=== PATIENT | female | born 1980 ===

== ENCOUNTER 2021-02-01 14:19 | Emergency (ER) | payer OTHER ==
[~2021-02-01] VITALS: Ht 170.2 cm; Wt 61.2 kg
[2021-02-01 15:00] VITALS: BP 95/41
[2021-02-01] MEDS ORDERED: Tetanus/Diptheria/Pertussis IM ONE (15:15)
--- NOTE | 2021-02-01 15:53 | Emergency Room Report ---
History of Present Illness General Chief Complaint: Laceration Source: Patient Present Illness HPI 40-year-old female with no signal past medical history here complaining of pain and laceration on knuckles index and middle finger right hand. Patient reports that 1 hour prior to arrival she had a glass door and broke the glass. Is able to talk full range of motion of the hand. Denies any sensory deficit. Is neurovascularly intact. Has full strength. Has not taken medication for symptom relief. Minimal bleeding noted. Denies taking any blood thinners. Denies all other injuries. Rates the pain 5 out of 10 without radiation. Denies tingling or numbness. Denies . Allergies: Coded Allergies: DIPHENHYDRAMINE (Verified Allergy, Severe, 02/01/21) FISH CONTAINING PRODUCTS (Verified Allergy, Severe, 02/01/21) Uncoded Allergies: OPIODS (Adverse Reaction, Severe, 02/01/21) COVID-19 Screening Contact w/high risk pt: No Experienced COVID-19 symptoms?: No COVID-19 Testing performed SALVAGE DIVER: Yes COVID-19 Screening: Negative COVID-19 COVID-19 Testing Source: ryan quinonez Patient History Past Medical History: see triage record Past Surgical History: none Pertinent Family History: none Last Menstrual Period: 2 weeks ago Now: No Immunizations: other - Tdap given in ED Reviewed Nursing Documentation: PMH: Agreed; PSxH: Agreed Nursing Documentation-PMH Past Medical History: No History, Except For Hx Asthma: Yes Review of Systems All Other Systems: negative except mentioned in HPI Physical Exam Vital Signs Date Time Temp Pulse Resp B/P (MAP) Pulse Ox O2 Delivery O2 Flow Rate FiO2 02/01/21 14:52 97.9 76 20 101/43 (62) 99 Room Air Sp02 EP Interpretation: reviewed, normal General Appearance: no apparent distress, alert, GCS 15, non-toxic Head: normocephalic, atraumatic Eyes: bilateral eye normal inspection, bilateral eye PERRL ENT: no angioedema Neck: supple, no bony tend Respiratory: no retraction, no accessory muscle use Cardiovascular #1: regular rate, rhythm Cardiovascular #2: 2+ radial (R), 2+ radial (L) Gastrointestinal: non tender Musculoskeletal: back normal, non-tender Neurologic: alert, oriented Skin: laceration - Superficial laceration at PIP on both right index and right middle finger with minimal bleeding Lymphatic: no adenopathy Procedures Splinting Splinting : Consent: Verbal Laceration/Wound Repair Laceration/Wound Repair #1: Consent: Verbal Wound Location: upper extremity - Right index finger at PIP Wound's Depth, Shape: superficial Wound Length (cm): 1 Wound Explored: no foreign body removed Betadine Prep?: Yes Wound Repaired With: Dermabond Layer Closure?: Yes Sterile Dressing Applied?: Yes Splint Applied?: Yes Type of Splint Applied: metal finer splint Sling Applied?: No Patient Tolerated: Well Complications: None Laceration/Wound Repair #2: Consent: Verbal Wound Location: upper extremity - Right middle finger PIP Wound's Depth, Shape: superficial Wound Length (cm): 1 Wound Explored: no foreign body removed Betadine Prep?: Yes Wound Repaired With: Dermabond Layer Closure?: Yes Sterile Dressing Applied?: Yes Splint Applied?: Yes Type of Splint Applied: Finger metal splint Sling Applied?: No Patient Tolerated: Well Complications: None Medical Decision Making PA Attestation All my diagnosis and treatment plans were reviewed ad discussed with my supervising physician Dr. Bates Diagnostic Impression: Primary Impression: Laceration of finger Additional Impression: Crushing injury of finger ER Course 40-year-old female with no signal past medical history here complaining of pain and laceration on knuckles index and middle finger right hand. Patient reports that 1 hour prior to arrival she had a glass door and broke the glass. Is able to talk full range of motion of the hand. Denies any sensory deficit. Is neurovascularly intact. Has full strength. Has not taken medication for symptom relief. Minimal bleeding noted. Denies taking any blood thinners. Denies all other injuries. Rates the pain 5 out of 10 without radiation. Denies tingling or numbness. Denies . Ddx considered but are not limited to : Superficial laceration, deep laceration, tendon involvement with laceration, laceration with foreign body Vital signs: are WNL, pt. is afebrile H&PE are most consistent with: Superficial laceration finger crushing injury of finger ORDERS: Right hand x-ray, Augmentin, mupirocin ointment, Motrin ED INTERVENTIONS: Tdap given, wound repair, dressing, splint applied DISCHARGE: At this time pt. is stable for d/c to home. Will provide printed patient care instructions, and any necessary prescriptions. Care plan and follow up instructions have been discussed with the patient prior to discharge. Proper wound care advised patient, patient take medication as directed, worsening symptom return to the emergency room Other X-Ray Diagnostic Results Other X-Ray Diagnostic Results : X-Ray ordered: Right hand # of Views/Limited Vs Complete: 3 View Indication: Pain EP Interpretation: Yes PA Xray: Interpretation reviewed, by supervising MD, and agrees with findings. Interpretation: no dislocation, no fractures, other - No foreign body detected Impression: No acute disease Electronically Signed by: Orquidea Mercado PA-C Last Vital Signs Date Time Temp Pulse Resp B/P (MAP) Pulse Ox O2 Delivery O2 Flow Rate FiO2 02/01/21 14:52 97.9 76 20 101/43 (62) 99 Room Air Disposition: HOME, SELF-CARE Condition: Stable Scripts Ibuprofen* (MOTRIN*) 600 Mg Tablet 600 MG ORAL Q6H PRN for For Pain, #30 TAB 0 Refills Prov: Orquidea Land 02/01/21 Mupirocin* (MUPIROCIN*) 22 Gm Oint...g. 1 APPLIC TOPIC THREE TIMES A DAY, #22 GM Prov: Orquidea Land 02/01/21 Amoxicillin/Potassium Clav 875-125* (AUGMENTIN 875-125 TABLET*) 1 Each Tablet 1 TAB ORAL TWICE A DAY for 7 Days, #14 TAB Prov: Orquidea Ladn 02/01/21 Patient Instructions: Laceration Care, Adult Additional Instructions: Take medication as directed, follow-up with your primary care provider, proper wound care recommended, if worsening symptoms return to emergency room Orquidea Land Feb 01, 2021 15:53
[2021-02-01] MEDS ORDERED: IBUPROFEN600 M1 ORAL (15:54)
[2021-02-01] MEDS ORDERED: MUPIROCIN22 GM TOPIC (15:54)
[2021-02-01] MEDS ORDERED: AUGMENTIN 875-1 EAC1 ORAL (15:54)
[2021-02-01 16:05] VITALS: BP 95/41
--- NOTE | 2021-02-01 17:43 | Diagnostic Imaging Report ---
Indication: Right hand pain status post injury Technique: 4 views of the right hand Comparison: None FINDINGS/IMPRESSION: Bone mineralization is within normal limits. No acute fracture or dislocation is identified. No discrete soft tissue defect appreciated radiographically. No radiopaque foreign body.
== END 2021-02-01 16:05 | disposition home or self-care (01) ==
LOC: EMR 15:32
DX: S61.210A Laceration without foreign body of right index finger without damage to nail, initial encounter (principal); S61.212A Laceration without foreign body of right middle finger without damage to nail, initial encounter; J45.909 Unspecified asthma, uncomplicated; Z88.5 Allergy status to narcotic agent; Z88.8 Allergy status to other drugs, medicaments and biological substances; Z91.013 Allergy to seafood; W25.XXXA Contact with sharp glass, initial encounter; Y93.9 Activity, unspecified; Y92.9 Unspecified place or not applicable; Z23 Encounter for immunization
CPT/HCPCS: 29130; 90471; 90715; 99283